=== PATIENT | female | born 1950 | race Hispanic/Latino ===

== ENCOUNTER 2017-10-13 07:50 | Emergency (ER) | payer MEDICARE ==
[~2017-10-13] VITALS: Ht 157.5 cm; Wt 85.7 kg
[2017-10-13] MEDS ORDERED: CLONIDINE HCL 0.1 MG TAB PO STA (08:27)
[2017-10-13 08:59] VITALS: BP 193/81
== END 2017-10-13 09:00 | disposition home or self-care (01) ==
LOC: FSED 07:50
DX: M54.5 Low back pain (principal); B02.9 Zoster without complications; I10 Essential (primary) hypertension; Z91.14 Patient's other noncompliance with medication regimen
CPT/HCPCS: 80048; 85025; 99283